=== PATIENT | male | born 2000 | race Caucasian/White ===

== ENCOUNTER 2020-08-24 17:26 | Emergency (ER) | payer BC ==
--- NOTE | 2020-08-24 18:26 | EDM.PDOC ---
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 mother here to help him move a bed, bed secured to vehicle with straps, while cutting a zip tie he has a lac of L hand pt has tingling of tip of this L thumb altho nerve injury seems unlikely last Td 1y ago ED ROS GENERAL - Review of Systems Review Of Systems: See Below Constitutional: Reports: No Symptoms HEENT: Reports: No Symptoms Respiratory: Reports: No Symptoms Cardiovascular: Reports: No Symptoms Endocrine: Reports: No Symptoms GI/Abdominal: Reports: No Symptoms : Reports: No Symptoms Musculoskeletal: Reports: No Symptoms Skin: Reports: Wound Neurological: Reports: No Symptoms Psychiatric: Reports: No Symptoms Hematologic/Lymphatic: Reports: No Symptoms Immunologic: Reports: No Symptoms ED EXAM, SKIN/RASH Exam: See Below Exam Limited By: No Limitations General Appearance: Alert, WD/WN, No Apparent Distress Nose: Normal Inspection Throat/Mouth: Normal Inspection Head: Atraumatic Neck: Normal Inspection Respiratory/Chest: No Respiratory Distress Cardiovascular: Regular Rate, Rhythm GI/Abdominal: Soft, Non-Tender, No Distention Back Exam: Normal Inspection, Full Range of Motion Extremities: Other (2 cm lac, 1% lido with epi with #30 needle, good analgesia, cleaned x 12 with gauze and NS, 3-5 Prolene x 4 for closure, good apposition of margins, tolerated well, no fb's, no violation of tendon/joint/muscle, should heal well) Neurological: Alert, Oriented, CN II-XII Intact, No Motor/Sensory Deficits Psychiatric: Normal Affect, Normal Mood Skin: Other (there is a 2 cm horizontal lac thru skin parallel and 1 cm prox to 1st MCP dorsally on L hand, muscle exposed, no tendon injury, no definite dec'd light touch L c/w R) Course - Re-Assessments/Exams Free Text/Narrative Re-Assessment/Exam: 08/24/20 18:29 mother concerned re expenses, how to remove sutures demonstrated and to reinforce with strips of bandaids Departure - Departure Time of Disposition: 18:21 Disposition: Home, Self-Care 01 Condition: Good Clinical Impression: Laceration of left hand - Discharge Information *PRESCRIPTION DRUG MONITORING PROGRAM REVIEWED*: Not Applicable *COPY OF PRESCRIPTION DRUG MONITORING REPORT IN PATIENT TORO: Not Applicable Instructions: Laceration Care, Adult Additional Instructions: Keep clean and dry and covered with a dressing. May work in 3 days as scheduled. Avoid friction or rubbing. Remove sutures in 6-7 days. While infection is unlikely, see a physician the same day for any increase in redness, swelling, pain, warmth, fever or drainage.
== END 2020-08-24 18:30 | disposition home or self-care (01) ==
LOC: FB.ED 17:26
DX: S61.012A Laceration without foreign body of left thumb without damage to nail, initial encounter (principal); W26.8XXA Contact with other sharp object(s), not elsewhere classified, initial encounter
CPT/HCPCS: 12001; 99282-25